=== PATIENT | female | born 1955 | race African-American/Black ===

== ENCOUNTER 2022-03-05 09:01 | Inpatient (IN) | payer MEDICARE, MEDICAID ==
[~2022-03-05] VITALS: Ht 162.6 cm; Wt 101.2 kg
[2022-03-05 10:21] LABS: BASOPHILS % 0.5 % (0.0-2.0); EOSINOPHILS % 1.6 % (0.0-5.0); HEMATOCRIT. 39.5 % (36.0-48.0); HEMOGLOBIN. 12.8 g/dL (12.0-16.0); LYMPHOCYTES % 25.8 % (20.0-50.0); MEAN CORPUSCULAR HEMOGLOBIN 29.7 pg (28.0-32.0); MEAN CORPUSCULAR VOLUME 91.7 fL (81.0-99.0); MONOCYTES % 4.8 % (2.0-8.0); NEUTROPHILS % 67.3 % (40.0-76.0); PLATELET 314 x1000/uL (130-400); RED BLOOD CELL COUNT 4.31 mill/uL (4.2-5.4); RED CELL DISTRIBUTION WIDTH 14.6 % (11.6-14.6)
[2022-03-05 10:28] LABS: CHLORIDE 105 mEq/L (98-107)
[2022-03-05] MEDS ORDERED: ENOXAPARIN 100MG/ML SYR SUBCUT ONE (12:00)
[2022-03-05] MEDS ORDERED: ASPIRIN 81MG TABLET PO ONE (12:00)
[2022-03-05 14:35] VITALS: BP 126/85
[2022-03-05] MEDS ORDERED: GUAIFENESIN 200MG/10ML SUGAR FREE UDC PO PRN (14:45)
[2022-03-05] MEDS ORDERED: ONDANSETRON HCL 4MG/2ML INJ IV PRN (14:45)
[2022-03-05] MEDS ORDERED: DIPHENHYDRAMINE 50MG/ML VIAL IV PRN (14:45)
[2022-03-05] MEDS ORDERED: ACETAMINOPHEN 325MG TABLET PO PRN ×2 (14:45)
[2022-03-05 16:00] VITALS: BP 126/85
[2022-03-05] MEDS ORDERED: IOHEXOL-350 100 ML BOTTLE ONE (18:14)
[2022-03-05] MEDS: SODIUM CHLORIDE 0.9% 1,000 ML IV SCH (18:34)
[2022-03-05] MEDS ORDERED: POTASSIUM CHLORIDE 20MEQ TABLET SR PO NR (19:00)
[2022-03-05 20:00] VITALS: BP 150/77
[2022-03-05] MEDS ORDERED: ENOXAPARIN 100MG/ML SYR SUBCUT NR (21:00)
[2022-03-05] MEDS ORDERED: ZOLPIDEM TARTRATE 5MG TABLET PO PRN (21:00)
[2022-03-05 21:07] LABS: INR 1.1; PROTHROMBIN TIME 11.7 sec (9.6-11.0)
[2022-03-05] MEDS: ENOXAPARIN 100MG/ML SYR SUBCUT SCH (22:09)
[2022-03-06] VITALS: BP 124/77
[2022-03-06] MEDS: SODIUM CHLORIDE 0.9% 1,000 ML IV SCH ×3 (01:00→21:00)
[2022-03-06 04:00] VITALS: BP 130/58
[2022-03-06] MEDS: MAGNESIUM/ALUMINUM HYDROXIDE/SIMETHICONE 30ML UDC PO PRN (07:08)
[2022-03-06 08:00] VITALS: BP 125/76
[2022-03-06] MEDS: ENOXAPARIN 100MG/ML SYR SUBCUT SCH ×2 (11:00→21:00)
[2022-03-06 12:00] VITALS: BP 128/71
[2022-03-06 16:00] VITALS: BP 124/68
[2022-03-06 20:00] VITALS: BP 114/62
[2022-03-07] VITALS: BP 134/77
[2022-03-07 04:00] VITALS: BP 137/90
[2022-03-07] MEDS: MAGNESIUM/ALUMINUM HYDROXIDE/SIMETHICONE 30ML UDC PO PRN (05:43)
[2022-03-07] MEDS: SODIUM CHLORIDE 0.9% 1,000 ML IV SCH (07:00)
[2022-03-07 08:00] VITALS: BP 151/78
[2022-03-07] MEDS: ENOXAPARIN 100MG/ML SYR SUBCUT SCH ×2 (08:57→20:32)
[2022-03-07 11:51] VITALS: BP 167/95
[2022-03-07] MEDS: CLONIDINE 0.1MG TABLET PO PRN (11:53)
[2022-03-07] MEDS: LOSARTAN POTASSIUM 25 MG TABLET PO SCH (13:16)
[2022-03-07 16:00] VITALS: BP 140/66
[2022-03-07 20:00] VITALS: BP 138/84
[2022-03-08] VITALS (7 sets, daily range): BP systolic 128–161; BP diastolic 66–91
[2022-03-08] MEDS: LOSARTAN POTASSIUM 25 MG TABLET PO SCH (08:57)
[2022-03-08] MEDS: ENOXAPARIN 100MG/ML SYR SUBCUT SCH (08:59)
[2022-03-08] MEDS: CLONIDINE 0.1MG TABLET PO PRN (13:05)
[2022-03-08] MEDS ORDERED: LIDOCAINE 5% PATCH TOP SCH (13:15)
== END 2022-03-08 16:18 | disposition home or self-care (01) | DRG 176 ==
LOC: ER 09:49 → 8WST 11:57 → EDBEDREQ 12:05 → ENRESERV 13:09
PROVIDERS: ADMIT Internal Medicine; ATTEND Internal Medicine
DX: I26.99 Other pulmonary embolism without acute cor pulmonale (principal); E87.6 Hypokalemia; R00.0 Tachycardia, unspecified; R77.8 Other specified abnormalities of plasma proteins; E66.9 Obesity, unspecified; Z82.49 Family history of ischemic heart disease and other diseases of the circulatory system; Z68.38 Body mass index [BMI] 38.0-38.9, adult; Z80.49 Family history of malignant neoplasm of other genital organs; I10 Essential (primary) hypertension; G90.9 Disorder of the autonomic nervous system, unspecified
CPT/HCPCS: 36415; 71045; 71275; 80053; 80061; 83036; 84484; 85025; 85379; 86038; 93005; 93306; 93970; 99291; J1650; J7030; Q9967